=== PATIENT | female | born 1970 | race Caucasian/White ===

== ENCOUNTER 2017-05-16 15:51 | Emergency (ER) | payer MEDICAID ==
[2017-05-16 16:03] VITALS: BP 145/85; PULSE 80; RESP 18; TEMP 98.1; O2SAT 98
[2017-05-16] MEDS ORDERED: Naproxen 550 mg Tab PO STA (16:41)
[2017-05-16 16:57] LABS: BASO % 0.7 % (0.0-2.0); EOS # 0.2 K/uL (0.0-0.7); EOS % 2.4 % (0.0-4.0); HEMOGLOBIN 13.1 g/dL (11.0-16.0); LYMPH # 2.1 K/uL (1.0-4.3); LYMPH % 30.1 % (20.0-40.0); MEAN CELL VOLUME 84.5 fL (81.0-99.0); MEAN CORPUSCULAR HEMOGLOBIN 29.5 pg (27.0-31.0); MEAN CORPUSCULAR HGB CONC 34.9 g/dL (33.0-37.0); MEAN PLATELET VOLUME 8.8 fL (7.2-11.7); MONO # 0.4 K/uL (0.0-0.8); MONO % 5.1 % (0.0-10.0); NEUT # 4.3 K/uL (1.8-7.0); NEUT % 61.7 % (50.0-75.0); RBC 4.44 Mil/uL (3.80-5.20); RED CELL DISTRIBUTION WIDTH 12.6 % (11.5-14.5)
[2017-05-16] MEDS ORDERED: Naproxen 550 mg Tab PO ONE (17:00)
[2017-05-16 17:05] LABS: ALB/GLOB RATIO 1.1 (1.0-2.1); ALBUMIN 4.1 g/dL (3.5-5.0); ALT/SGPT 30 U/L (9-52); AST/SGOT 24 U/L (14-36); BLOOD UREA NITROGEN 15 mg/dL (7-17); CALCIUM 8.7 mg/dl (8.6-10.4); GFR AFRICAN-AMERICAN > 60; GFR NON-AFRICAN AMERICAN > 60
--- NOTE | 2017-05-16 17:34 | C.PDOC ---
History Of Present Illness Pt c/o left shoulder area pain. Time Seen by Provider: 05/16/17 16:21 Chief Complaint (Nursing): Upper Extremity Problem/Injury History Per: Patient Onset/Duration Of Symptoms: Days (4) Current Symptoms Are (Timing): Still Present Quality: "Pain" Severity: Moderate Exacerbating Factor(s): Strenuous Use Of Affected Area, Movement Additional History Per: Prior Records Past Medical History Reviewed: Historical Data, Nursing Documentation, Vital Signs Vital Signs: Last Vital Signs Temp 98.1 F 05/16/17 16:00 Pulse 80 05/16/17 16:00 Resp 18 05/16/17 16:00 BP 145/85 05/16/17 16:00 Pulse Ox 98 05/16/17 16:00 - Medical History PMH: No Chronic Diseases Surgical History: No Surg Hx - [facility] Procedures ONYCHOPLASTY (11/17/13) TETANUS TOXOID ADMINIST (11/17/13) Family History: States: Unknown Family Hx - Social History Hx Tobacco Use: No Hx Alcohol Use: Yes Hx Substance Use: No - Immunization History Hx Tetanus Toxoid Vaccination: No Hx Influenza Vaccination: Yes Hx Pneumococcal Vaccination: No Review Of Systems Except As Marked, All Systems Reviewed And Found Negative. Constitutional: Negative for: Fever, Weakness Respiratory: Negative for: Shortness of Breath, Hemoptysis Gastrointestinal: Negative for: Nausea, Vomiting, Abdominal Pain Musculoskeletal: Negative for: Neck Pain Skin: Negative for: Rash Neurological: Negative for: Weakness, Numbness Physical Exam - Physical Exam Appears: Non-toxic, No Acute Distress Skin: Normal Color, Warm, Dry, No Rash Head: Atraumatic, Normacephalic Eye(s): bilateral: Normal Inspection, PERRL, EOMI Neck: Normal ROM, No Midline Cervical Tenderness, Paracervical Tenderness (left) , No Step Off Deformity, Supple Chest: Symmetrical, No Deformity, Tenderness (left upper), No Ecchymosis, No Subcutaneous Emphysema Cardiovascular: Rhythm Regular Respiratory: Normal Breath Sounds, No Accessory Muscle Use Gastrointestinal/Abdominal: Soft, No Tenderness Back: Normal Inspection, No CVA Tenderness, No Vertebral Tenderness Extremity: Normal ROM, No Calf Tenderness, No Swelling Neurological/Psych: Oriented x3, Normal Speech, Normal Cognition, Normal Motor, Normal Sensation ED Course And Treatment - Laboratory Results Result Diagrams: 05/16/17 16:44 05/16/17 16:44 Lab Interpretation: No Acute Changes ECG: Interpreted By Me, Viewed By Me ECG Rhythm: Sinus Rhythm ECG Interpretation: No Acute Changes Rate From EC O2 Sat by Pulse Oximetry: 98 Pulse Ox Interpretation: Normal Reassessment Condition: Improved Medical Decision Making Medical Decision Making: PERC rule negative. Disposition Counseled Patient/Family Regarding: Studies Performed, Diagnosis, Need For Followup - Disposition Disposition: HOME/ ROUTINE Disposition Time: 17:34 Condition: STABLE Additional Instructions: Follow up with your doctor for further evaluation and treatment. Return to the ER if you develop shortness of breath, redness, swelling, worsening of symptoms or if you have any other concerns. Instructions: Shoulder Pain (DC) - Clinical Impression Clinical Impression: Pain of left shoulder region
--- NOTE | 2017-05-19 10:27 | CARD ---
APPROVED REPORT EKG Measurement Heart [id number] <Conclusion> Normal sinus rhythm Normal ECG
== END 2017-05-16 17:45 | disposition home or self-care (01) ==
LOC: C.ER 15:51
DX: M25.512 Pain in left shoulder (principal)

== ENCOUNTER 2017-07-05 15:04 | Emergency (ER) | payer MEDICAID ==
[2017-07-05 15:15] VITALS: RESP 16
[2017-07-05] MEDS ORDERED: Sodium Chloride 0.9% 1,000 ML IV ONE (15:31)
[2017-07-05 15:33] LABS: HCG,QUALITATIVE URINE NEGATIVE (NEGATIVE)
[2017-07-05 15:34] LABS: SQUAMOUS EPITHIAL 1 /hpf (0-5); URINE BILIRUBIN NEGATIVE (NEGATIVE); URINE BLOOD 2+ (NEGATIVE); URINE CLARITY Clear (Clear); URINE COLOR Yellow (YELLOW); URINE GLUCOSE (UA) NORMAL (Normal); URINE LEUKOCYTE ESTERASE NEG Leu/uL (Negative); URINE PROTEIN NEGATIVE (NEGATIVE); URINE UROBILINOGEN NORMAL mg/dL (0.2-1.0)
--- NOTE | 2017-07-05 15:49 | C.PDOC ---
History Of Present Illness 47 y/o female w/o significant PMHx presents to ED for evaluation of vaginal bleeding since 06/19/17. Pt reports, developed some weakness "for past few days". Patient reports, noted passing clots. Pt admits, went to see PMD who sent to ED for further evaluation. Patient denies dizziness, vertigo, headache, cp, sob, abdominal pain, nausea, vomiting, UTI sx, or any other complaints at this time. Ambulate to Ed for evaluation, not in nay apparent distress. Time Seen by Provider: 07/05/17 15:26 Chief Complaint (Nursing): Female Genitourinary History Per: Patient History/Exam Limitations: no limitations Onset/Duration Of Symptoms: Days Current Symptoms Are (Timing): Still Present Past Medical History Reviewed: Historical Data, Nursing Documentation, Vital Signs Vital Signs: Last Vital Signs Temp 98.4 F 07/05/17 17:30 Pulse 84 07/05/17 17:30 Resp 16 07/05/17 17:30 BP 154/88 H 07/05/17 17:30 Pulse Ox 99 07/05/17 17:30 - Medical History PMH: No Chronic Diseases Surgical History: No Surg Hx - [facility] Procedures ONYCHOPLASTY (11/17/13) TETANUS TOXOID ADMINIST (11/17/13) Family History: States: No Known Family Hx - Social History Hx Tobacco Use: No Hx Alcohol Use: Yes Hx Substance Use: No - Immunization History Hx Tetanus Toxoid Vaccination: No Hx Influenza Vaccination: Yes Hx Pneumococcal Vaccination: No Review Of Systems Constitutional: Positive for: Weakness Cardiovascular: Negative for: Chest Pain Respiratory: Negative for: Shortness of Breath Gastrointestinal: Negative for: Nausea, Vomiting, Abdominal Pain Genitourinary: Positive for: Vaginal Bleeding Neurological: Negative for: Headache Physical Exam - Physical Exam Appears: Well, Non-toxic, No Acute Distress Skin: Normal Color, Warm, Dry, No Rash Head: Normacephalic Eye(s): bilateral: PERRL Oral Mucosa: Moist Neck: Trachea Midline, Supple Cardiovascular: Rhythm Regular Respiratory: No Decreased Breath Sounds, No Accessory Muscle Use, No Rales, No Rhonchi, No Stridor, No Wheezing Gastrointestinal/Abdominal: Soft, No Tenderness, No Distention, No Guarding, No Rebound Back: No CVA Tenderness, No Vertebral Tenderness Extremity: Normal ROM, No Pedal Edema, No Deformity, No Swelling Neurological/Psych: Oriented x3, Normal Speech ED Course And Treatment - Laboratory Results Result Diagrams: 07/05/17 15:44 07/05/17 15:44 Lab Interpretation: No Acute Changes O2 Sat by Pulse Oximetry: 98 (RA) Pulse Ox Interpretation: Normal - CT Scan/US Transvaginal US Other Rad Studies (CT/US): Radiology Report Reviewed CT/US Interpretation: Creator : Nando Cehema MD. Dictator : Nando Cheema MD. Slab Inspector : Monument Setter Helper : Nando Cheema MD. Approver2 : Report Date : 07/05/2017 17:22:50. My Comment : . HISTORY: vaginal bleeding for 2 weeks. COMPARISON: None available. TECHNIQUE: Transabdominal and transvaginal. FINDINGS: UTERUS: Measures 8.3 x 4.5 x 5.1 cm. Two myometrial cysts, each 4 mm. No fibroid or other mass lesion seen. ENDOMETRIUM: Measures 9 mm in diameter. CERVIX: No cervical abnormality identified. RIGHT OVARY: Measures 2.3 x 1.0 x 2.0 cm. No solid mass. Normal flow. LEFT OVARY: Measures 2.4 x 1.5 x 2.3 cm. No solid mass. Normal flow. 3 mm calcification. FREE FLUID: No significant free fluid noted. OTHER FINDINGS : None. IMPRESSION: Two tiny myometrial cysts. 9 mm endometrium. Progress Note: On re-eval, pt is afebrile, hemodynamicaly stable. Non-toxic. Ambulatory in ED with stable gait. ENT: no acute findings. Neck: Supple, (-) meningeal sign. Lungs: CTA B/L, BS equal B/L. CVS: (+)S1S2, reg. Abd: soft, NT/ND, (-) guarding, (-) rebound. back: (-) CVA tenderness. Blood work review and appears without acute findings. UA results review and normal. Transvaginal US: (+) mild B/L ovarian cyst, no acute findings. results review with pt. Pt has clinical findings c/w DUB. Pt advised and ref. to f/u with SPRING ASSEMBLER SUPERVISOR in 2-3 days for re-eval. return if any new changes. Disposition Counseled Patient/Family Regarding: Studies Performed, Diagnosis, Need For Followup - Disposition [facility] Disposition: HOME/ ROUTINE Disposition Time: 17:09 Condition: STABLE Additional Instructions: Encourage fluids Follow up with SPRING ASSEMBLER SUPERVISOR in 2-3 days for re-evaluation. return to ED if any worsening or new changes. Instructions: Heavy Periods Forms: [employer] (German) - Clinical Impression Clinical Impression: Dysfunctional uterine bleeding - PA / SENIOR COPYWRITER / Resident Statement MD/DO has reviewed & agrees with the documentation as recorded. - Scribe Statement The provider has reviewed the documentation as recorded by the Markibjay Harrington All medical record entries made by the Markibe were at my direction and personally dictated by me. I have reviewed the chart and agree that the record accurately reflects my personal performance of the history, physical exam, medical decision making, and the department course for this patient. I have also personally directed, reviewed, and agree with the discharge instructions and disposition.
[2017-07-05 15:54] LABS: BASO % 0.3 % (0.0-2.0); EOS # 0.6 K/uL (0.0-0.7); EOS % 6.5 % (0.0-4.0); HEMOGLOBIN 13.1 g/dL (11.0-16.0); LYMPH % 21.7 % (20.0-40.0); MEAN CELL VOLUME 85.7 fL (81.0-99.0); MEAN CORPUSCULAR HEMOGLOBIN 30.1 pg (27.0-31.0); MEAN CORPUSCULAR HGB CONC 35.2 g/dL (33.0-37.0); MEAN PLATELET VOLUME 9.1 fL (7.2-11.7); MONO # 0.5 K/uL (0.0-0.8); MONO % 5.9 % (0.0-10.0); NEUT # 6.1 K/uL (1.8-7.0); NEUT % 65.6 % (50.0-75.0); NRBC % 0.1 % (0.0-2.0); RBC 4.36 Mil/uL (3.80-5.20); RED CELL DISTRIBUTION WIDTH 13.7 % (11.5-14.5); WHITE BLOOD COUNT 9.3 K/uL (4.8-10.8)
[2017-07-05 16:00] LABS: INR 1.1; PROTHROMBIN TIME 11.6 SECONDS (9.7-12.2)
[2017-07-05 16:05] LABS: BLOOD UREA NITROGEN 12 mg/dL (7-17); GFR AFRICAN-AMERICAN > 60; GFR NON-AFRICAN AMERICAN > 60
--- NOTE | 2017-07-05 17:24 | US ---
HISTORY: vaginal bleeding for 2 weeks COMPARISON: None available. TECHNIQUE: Transabdominal and transvaginal FINDINGS: UTERUS: Measures 8.3 x 4.5 x 5.1 cm. Two myometrial cysts, each 4 mm. No fibroid or other mass lesion seen. ENDOMETRIUM: Measures 9 mm in diameter. CERVIX: No cervical abnormality identified. RIGHT OVARY: Measures 2.3 x 1.0 x 2.0 cm. No solid mass. Normal flow. LEFT OVARY: Measures 2.4 x 1.5 x 2.3 cm. No solid mass. Normal flow. 3 mm calcification. FREE FLUID: No significant free fluid noted. OTHER FINDINGS: None. IMPRESSION: Two tiny myometrial cysts. 9 mm endometrium.
[2017-07-05 17:31] VITALS: BP 154/88; PULSE 84; TEMP 98.4
[2017-07-05 22:30] VITALS: O2SAT 98
== END 2017-07-05 17:31 | disposition home or self-care (01) ==
LOC: C.ER 15:04
DX: N93.8 Other specified abnormal uterine and vaginal bleeding (principal)
CPT/HCPCS: 76830; 76856; 80048; 81001; 84703; 85025; 85610; 85730; 96360; 99284; J7040

== ENCOUNTER 2018-05-27 12:38 | Emergency (ER) | payer MEDICAID ==
[2018-05-27 12:46] VITALS: BMI 22.2
[2018-05-27 12:49] VITALS: BP 133/82; PULSE 96; RESP 18; TEMP 98; O2SAT 100
--- NOTE | 2018-05-27 14:24 | C.PDOC ---
History Of Present Illness 48 year old female presents to the ED complaining of pain and swelling to the ball of left foot for 3 days. Reports she has been walking a lot. Denies any trauma or injuries. Denies weakness or numbness. Time Seen by Provider: 05/27/18 13:02 Chief Complaint (Nursing): Lower Extremity Problem/Injury History Per: Patient History/Exam Limitations: no limitations Onset/Duration Of Symptoms: Days (3) Current Symptoms Are (Timing): Still Present Past Medical History Reviewed: Historical Data, Nursing Documentation, Vital Signs Vital Signs: Last Vital Signs Temp 98 F 05/27/18 12:46 Pulse 96 H 05/27/18 12:46 Resp 18 05/27/18 12:46 BP 133/82 05/27/18 12:46 Pulse Ox 100 05/27/18 12:46 - Medical History PMH: No Chronic Diseases Other Surgeries: Hx of surgeries - [facility] Procedures ONYCHOPLASTY (11/17/13) TETANUS TOXOID ADMINIST (11/17/13) Family History: States: No Known Family Hx - Social History Hx Tobacco Use: No Hx Alcohol Use: No Hx Substance Use: No - Immunization History Hx Tetanus Toxoid Vaccination: No Hx Influenza Vaccination: Yes Hx Pneumococcal Vaccination: No Review Of Systems Musculoskeletal: Positive for: Foot Pain (left big toe pain ) Neurological: Negative for: Weakness, Numbness Physical Exam - Physical Exam Appears: Non-toxic, No Acute Distress Skin: Warm, Dry, No Rash Head: Normacephalic Eye(s): bilateral: Normal Inspection Nose: Normal Oral Mucosa: Moist Neck: Supple Chest: Symmetrical Cardiovascular: Rhythm Regular Respiratory: Normal Breath Sounds, No Accessory Muscle Use Extremity: Tenderness (ball of left foot), Capillary Refill (less than 2 sec to left foot), No Deformity, Swelling (ball of left foot ), No Other (erythema, lesions, warmth ) Extremity: Bilateral: Normal Color And Temperature, Normal ROM Pulses: Left Dorsalis Pedis: Normal, Right Dorsalis Pedis: Normal Neurological/Psych: Oriented x3, Normal Speech, Normal Motor, Normal Sensation Gait: Steady ED Course And Treatment O2 Sat by Pulse Oximetry: 100 (RA) Pulse Ox Interpretation: Normal Progress Note: XR of left foot ordered. No fractures or dislocations. Patient instructed to follow up with Clinical Transformation Specialist. Return to the ED if symptoms worsen or persist. Disposition - Disposition Disposition: HOME/ ROUTINE Disposition Time: 14:22 Condition: STABLE Additional Instructions: Follow up with Clinical Transformation Specialist within 1-2 days. Return to ED if feel worse. Prescriptions: Naproxen [Naprosyn] 1 tab PO BID PRN #25 tab PRN Reason: Pain Diclofenac Sodium [Voltaren] 1 appl TP BID #100 gel..gram. Instructions: Diclofenac (Topical) Forms: [employer] (Mauritian) - Clinical Impression Clinical Impression: Foot pain - PA / ENTERPRISE SOFTWARE DEVELOPER / Resident Statement MD/DO has reviewed & agrees with the documentation as recorded. - Scribe Statement The provider has reviewed the documentation as recorded by the Scribe Gabriela Whitley All medical record entries made by the Hina were at my direction and personally dictated by me. I have reviewed the chart and agree that the record accurately reflects my personal performance of the history, physical exam, medical decision making, and the department course for this patient. I have also personally directed, reviewed, and agree with the discharge instructions and disposition.
--- NOTE | 2018-05-27 16:00 | RAD ---
Date of service: Left foot radiographs dated 11/17/2013 05/27/2018 PROCEDURE: Left Foot Radiographs. HISTORY: pain/swelling COMPARISON: None. TECHNIQUE: 3 views obtained. FINDINGS: BONES: No acute fracture. Inferior plantar calcaneal spur. JOINTS: Normal. SOFT TISSUES: Prominent soft tissue swelling at the 1st metatarsophalangeal joint. OTHER FINDINGS: None. IMPRESSION: No demonstrated fracture or dislocation.
== END 2018-05-27 14:31 | disposition home or self-care (01) ==
LOC: C.ER 12:38
DX: M79.672 Pain in left foot (principal)